=== PATIENT | female | born 1990 | race Caucasian/White ===

== ENCOUNTER → 2023-09-08 13:18 | Outpatient (REF) | payer OTHER, SELFPAY | LOC: WOUND 13:18 | PROVIDERS: ATTENDING PHYSICIAN Surgery; REFERRING PHYSICIAN Emergency Medicine | DX: L97.312 Non-pressure chronic ulcer of right ankle with fat layer exposed (principal); S61.502A Unspecified open wound of left wrist, initial encounter; F19.11 Other psychoactive substance abuse, in remission; X58.XXXA Exposure to other specified factors, initial encounter | CPT/HCPCS: 11042; 99203 ==

== ENCOUNTER → 2023-09-15 14:14 | Outpatient (REF) | payer OTHER, SELFPAY | LOC: WOUND 14:14 | PROVIDERS: ATTENDING PHYSICIAN Surgery; REFERRING PHYSICIAN Emergency Medicine | DX: L97.312 Non-pressure chronic ulcer of right ankle with fat layer exposed (principal); S61.502A Unspecified open wound of left wrist, initial encounter; F19.11 Other psychoactive substance abuse, in remission; X58.XXXA Exposure to other specified factors, initial encounter | CPT/HCPCS: 11042 ==